=== PATIENT | male | born 1945 | race Caucasian/White ===

== ENCOUNTER 2018-05-16 05:25 | Emergency (ER) | payer OTHER, BC ==
--- NOTE | 2018-05-16 05:32 | PDOC ---
History of Present Illness - General Stated Complaint: FALL,RT KNEE PAIN Time Seen by Provider: 05/16/18 05:32 - History of Present Illness Initial Comments: 72 year old male with history of HLD, HTN, and GERD presenting with right knee pain and swelling after falling and striking his knee at 14:00 on the day prior to presentation. Patient states that the was walking down the stairs with a bunch of groceries in his hand and tripped over the last stair at which point he fell forward and directly down onto his right knee. Denies any other sites of major trauma. States hta the bumped his right elbow but without any concerning sequelae. Denies any sudden excruciating pain but gradually began to note swelling and stiffness of his knee with difficulty fully extending his knee. Denies any erythema, drainage, fevers, chills. nausea vomiting, chest pain , SOB, or other symptoms 05/16/18 05:47 Past History - Past Medical History Allergies/Adverse Reactions: Allergies Allergy/AdvReac Type Severity Reaction Status Date / Time No Known Allergies Allergy Verified 05/16/18 05:39 Home Medications: Ambulatory Orders Amlodipine Besylate 10 mg PO DAILY 05/16/18 Aspirin [ASA -] 81 mg PO DAILY 05/16/18 Atorvastatin Calcium 40 mg PO DAILY 05/16/18 Losartan Potassium 100 mg PO DAILY 05/16/18 Pantoprazole Sodium 40 mg PO DAILY 05/16/18 Rosuvastatin [Crestor -] 20 mg PO DAILY 05/16/18 Zinc 50 mg PO DAILY 05/16/18 Review of Systems - Review of Systems Constitutional: No: Chills, Diaphoresis, Fever, Loss of Appetite HEENTM: No: Eye Pain, Blurred Vision, Tearing Respiratory: No: Cough, Orthopnea, Shortness of Breath Cardiac (ROS): No: Chest Pain, Edema, Irregular Heart Rate, Lightheadedness ABD/GI: No: Abdominal Distended, Diarrhea, Nausea, Vomiting : No: Dysuria, Discharge, Testicular Mass Musculoskeletal: Yes: Joint Pain, Joint Swelling, Muscle Weakness, Joint Stiffness. No: Back Pain Integumentary: No: Change in Color, Lumps, Pruritus Neurological: No: Headache, Numbness, Paresthesia Psychiatric: No: Anxiety, Depression Hematologic/Lymphatic: No: Anemia, Blood Clots, Easy Bleeding *Physical Exam - Physical Exam General Appearance: Yes: Nourished, Appropriately Dressed. No: Apparent Distress HEENT: positive: EOMI, LATHA, Normal ENT Inspection, Normal Voice Neck: positive: Trachea midline, Normal Thyroid, Supple. negative: Tender, Rigid Respiratory/Chest: positive: Lungs Clear, Normal Breath Sounds. negative: Chest Tender, Respiratory Distress, Accessory Muscle Use Cardiovascular: positive: Regular Rhythm, Regular Rate Gastrointestinal/Abdominal: positive: Normal Bowel Sounds, Flat, Soft. negative : Tender Lymphatic: negative: Adenopathy, Tenderness Musculoskeletal: positive: Decreased Range of Motion (Right knee with fluid effusion above patella, below petalla, and in the politeal fossa. Tender to palpation over hte medial aspect of the knee joint. Decreaed ability to extend leg. FUll passive range of motion with negative laurita's and garrett's.). negative: Normal Inspection Extremity: positive: Normal Capillary Refill, Normal Inspection, Normal Range of Motion. negative: Tender Integumentary: positive: Normal Color, Dry, Warm Neurologic: positive: Fully Oriented, Alert, Normal Mood/Affect, Normal Response , Motor Strength 5/5 Medical Decision Making - Medical Decision Making 72 year old with right knee effusion and pain after direct trauma to hte knee. Knee XR negative for fracture or other concenrign pathology. Knee exam negative laurita's, negative garrett's, and no obvious deformity with valgus/ varus strain. Will DC with followu up with ortho. 05/16/18 05:54 *DC/Admit/Observation/Transfer Diagnosis at time of Disposition: Effusion, right knee Right knee pain Qualifiers: Chronicity: acute Qualified Code(s): M25.561 - Pain in right knee - Discharge Dispostion Disposition: HOME Condition at time of disposition: Improved Decision to Admit order: No - Referrals Referrals: Jeromy Jara MD [Primary Care Provider] - Edson Carrington MD [Staff Physician] - - Patient Instructions Printed Discharge Instructions: DI for Knee Effusion, How To Perform RICE (Rest , Ice, Compress, Elevate) Additional Instructions: You have no fracture of your knee. Please try to only partially weight bear with your foot. Use RICE therapy per our instructions, Use Tylenol and Motrin for your pain. Please follow up with the orthopedic surgeon on Saturday. Please return to the ED if you have new or worsening symptoms. - Post Discharge Activity
[2018-05-16] MEDS ORDERED: ACETAMINOPHEN 500 MG TABLET (FP) PO ONE (05:46)
[2018-05-16 05:47] VITALS: BP 158/79; PULSE 88; TEMP 97.9; BMI 32.8
[2018-05-16] MEDS ORDERED: ACETAMINOPHEN 325 MG TABLET (FP) ONE (05:52)
--- NOTE | 2018-05-16 06:43 | PDOC ---
History of Present Illness - General Chief Complaint: Pain Stated Complaint: FALL,RT KNEE PAIN Time Seen by Provider: 05/16/18 05:32 History Source: Patient, Significant Other Exam Limitations: No Limitations - History of Present Illness Initial Comments: 05/16/18 06:35 72yoM hx of HTN, HL, GERD presnest > 12h after fall onto R knee. Last step going down stairs and slipped w/ trauma to anterior knee. + head hit on bannister, no LOC, no headache, no vision changes. pmhx as above shx no cig/etoh/illicitws NKDA AF, vSS NAD, appears younger than stated age. NCAT nontender cspine, no stepoffs. RRR CTABL abd soft ntnd pelvis stable R knee moderate effusion, + ballotting patella, unable to extend knee, + significant superior mobility of patella on quadraceps contraction. A&O x 3 72yoM w/ knee effusion after strike, concern for patellar tendon rupture. . knee xrays knee immobilizer, NWB and rapid orthopedics f/u. dispo Past History - Past Medical History Allergies/Adverse Reactions: Allergies Allergy/AdvReac Type Severity Reaction Status Date / Time No Known Allergies Allergy Verified 05/16/18 05:39 Home Medications: Ambulatory Orders Amlodipine Besylate 10 mg PO DAILY 05/16/18 Aspirin [ASA -] 81 mg PO DAILY 05/16/18 Atorvastatin Calcium 40 mg PO DAILY 05/16/18 Losartan Potassium 100 mg PO DAILY 05/16/18 Pantoprazole Sodium 40 mg PO DAILY 05/16/18 Rosuvastatin [Crestor -] 20 mg PO DAILY 05/16/18 Zinc 50 mg PO DAILY 05/16/18 Cancer: Yes (Prostate) COPD: No HTN: Yes Hypercholesterolemia: Yes Other medical history: Sleep Apnea - Surgical History Abdominal Surgery: Yes (Prostate CA) - Suicide/Smoking/Psychosocial Hx Smoking History: Former smoker Have you smoked in the past 12 months: No If you are a former smoker, when did you quit?: 40 yrs ago Information on smoking cessation initiated: No Hx Alcohol Use: No Drug/Substance Use Hx: No Substance Use Type: None *Physical Exam - Vital Signs Last Vital Signs Temp Pulse Resp BP Pulse Ox 97.9 F 88 20 158/79 97 05/16/18 05:41 05/16/18 05:41 05/16/18 05:41 05/16/18 05:41 05/16/18 05:41 ED Treatment Course - Medications Given in the ED: ED Medications Discontinued Medications Generic Name Dose Route Start Last Admin Trade Name Apolinar PRN Reason Stop Dose Admin Acetaminophen 975 mg 05/16/18 05:46 05/16/18 05:51 Tylenol - PO 05/16/18 05:47 975 mg ONCE ONE Administration *DC/Admit/Observation/Transfer Diagnosis at time of Disposition: Effusion, right knee Right knee pain Qualifiers: Chronicity: acute Qualified Code(s): M25.561 - Pain in right knee - Discharge Dispostion Disposition: HOME Condition at time of disposition: Improved - Referrals Referrals: Jeromy Jara MD [Primary Care Provider] - Edson Carrington MD [Staff Physician] - - Patient Instructions Printed Discharge Instructions: How To Perform RICE (Rest, Ice, Compress, Elevate), DI for Knee Effusion Additional Instructions: You have no fracture of your knee. Please try to only partially weight bear with your foot. Use RICE therapy per our instructions, Use Tylenol and Motrin for your pain. Please follow up with the orthopedic surgeon on Saturday. Please return to the ED if you have new or worsening symptoms. - Post Discharge Activity
== END 2018-05-16 07:50 | disposition home or self-care (01) ==
LOC: JER 05:25
DX: M25.561 Pain in right knee (principal); M79.89 Other specified soft tissue disorders; Z87.891 Personal history of nicotine dependence; Z85.46 Personal history of malignant neoplasm of prostate; I10 Essential (primary) hypertension; E78.00 Pure hypercholesterolemia, unspecified; W10.9XXA Fall (on) (from) unspecified stairs and steps, initial encounter; Y93.89 Activity, other specified; Y92.89 Other specified places as the place of occurrence of the external cause
CPT/HCPCS: 73564-TC-RT-FY; 99283-25

== ENCOUNTER 2018-05-23 06:21 | Day surgery (SDC) | payer OTHER, BC ==
[2018-05-20 13:43] VITALS: BMI 32.8
[2018-05-23 07:51] LABS: ALBUMIN 3.6 g/dl (3.4-5.0); ALK PHOS 76 U/L (45-117); ANION GAP 7 MMOL/L (8-16); BILIRUBIN,TOTAL 0.6 mg/dL (0.2-1); BLOOD UREA NITROGEN 24 mg/dL (7-18); CALCIUM 9.6 mg/dL (8.5-10.1); CHLORIDE 105 mmol/L (98-107); CO2 28 mmol/L (21-32); CREATININE 1.2 mg/dL (0.55-1.3); GLUCOSE,RANDOM 98 mg/dL (74-106); POTASSIUM 4.2 mmol/L (3.5-5.1); SGOT/AST 26 U/L (15-37); SGPT/ALT 33 U/L (13-61); SODIUM 140 mmol/L (136-145)
[2018-05-23] MEDS ORDERED: PROPOFOL 20 ML ONE (07:57)
[2018-05-23] MEDS ORDERED: SUCCINYLCHOLINE CHLORIDE 200 MG/10 ML VIAL ONE (07:57)
[2018-05-23] MEDS ORDERED: MIDAZOLAM HCL 2 MG/2 ML SINGLE DOSE VIAL ONE ×2 (07:57→08:37)
[2018-05-23] MEDS ORDERED: oxyCODONE HCL 5 MG TABLET PO PRN (08:10)
[2018-05-23] MEDS ORDERED: ONDANSETRON 4 MG/2 ML VIAL IVPUSH PRN (08:10)
--- NOTE | 2018-05-23 08:12 | HP ---
Satellite [facility] - Chief Complaint Chief Complaint: right knee pain History Source: Patient - Past Medical History Allergies/Adverse Reactions: Allergies Allergy/AdvReac Type Severity Reaction Status Date / Time No Known Allergies Allergy Verified 05/20/18 13:30 - Current Medications Current Medications: Home Medications Medication Instructions Recorded Amlodipine Besylate 10 mg PO DAILY 05/16/18 Aspirin [ASA -] 81 mg PO DAILY 05/16/18 Atorvastatin Calcium 40 mg PO DAILY 05/16/18 Losartan Potassium 100 mg PO DAILY 05/16/18 Pantoprazole Sodium 40 mg PO DAILY 05/16/18 Rosuvastatin [Crestor -] 20 mg PO DAILY 05/16/18 Zinc 50 mg PO DAILY 05/16/18 Satellite Physical Exam - Physical Examination Vital Signs: Vital Signs Period Temp Pulse Resp BP Sys/Mendez Pulse Ox Last 24 Hr 98.5 F 74 18 127/68 95 Extremities: Other (+ defect in quads superior to right patella, unable to extend knee with gravity removed) Satellite Impression/Plan - Impression/Plan Impression: right quads rupture Operative Procedure: right quads repair Date to be Performed: 05/23/18
[2018-05-23] MEDS ORDERED: LACTATED RINGERS SOLUTION 1,000 ML IV SCH (08:15)
[2018-05-23] MEDS ORDERED: ceFAZolin SODIUM 1 GM VIAL IVPB ONE (08:33)
--- NOTE | 2018-05-23 09:27 | OP ---
Operative Note - Note: Operative Date: 05/23/18 ([facility]) Pre-Operative Diagnosis: right quad tendon rupture Operation: right quad tendon repair Post-Operative Diagnosis: Same as Pre-op Surgeon: Edson Carrington Audit Senior Associate: Amilcar Delgado Anesthesiologist/FILING OR REGISTRY CLERK: Randi Hairston Anesthesia: Spinal, Local Estimated Blood Loss (mls): 50 Operative Report Dictated: Yes
--- NOTE | 2018-05-23 09:54 | OP ---
DATE OF OPERATION: 05/23/2018 PREOPERATIVE DIAGNOSIS: Right quadriceps tendon rupture. POSTOPERATIVE DIAGNOSIS: Right quadriceps tendon rupture. PROCEDURE: Right quadriceps tendon repair. SURGICAL ATTENDING: Edson Carrington MD SHOT COAT TENDER: YAKOV Bernard ANESTHESIA: Regional and general. CLOSURE: SutureTape from [employer] for tendon, No. 1 Vicryl for retinaculum, 0 and 2-0 subcutaneous, and 3-0 Monocryl subcuticular, with skin glue for skin. ESTIMATED BLOOD LOSS: Less than 50 mL. COMPLICATIONS: None. CONDITION: To recovery room in stable condition. DESCRIPTION OF OPERATIVE PROCEDURE: Patient was taken to the operating room on May 23, 2018. General anesthesia was administered by the anesthesiologist. IV Kefzol was administered prophylactically prior to the case. The right lower extremity was prepped and draped in the usual sterile fashion. A 8 x 10 cm longitudinal incision centered over the patella was incised. Hemostasis was achieved with Bovie cautery. Sharp dissection was carried down to the level of the extensor mechanism. The quadriceps tendon was found to be completely torn and retinaculum torn both medially and laterally. The knee was irrigated with copious amounts of irrigation. The tendon was sutured with SutureTape suture using a baseball stitch up and down the sides and in the center aspect of the tendon. The superior pole of the patella was freshened to expose bleeding bone curetted, as well. Two transpatellar drill holes were drilled from superior to inferior. Using a Beath pin, the sutures in the quadriceps tendon were placed through the eyelet hole of the Beath pin and pulled out the inferior pole of the patella. One limb was passed underneath the patellar tendon medially, and the other was passed in the lateral direction. With the knee in extension, the sutures were then tied snugly to the inferior pole of the patella, one medially and one laterally, achieving excellent fixation of the tendon. The retinaculum was then closed medially and laterally using N. 1 Vicryl suture. The knee was tested through range of motion and found to have full extension and started to experience some tension 45 to 60 degrees with good maintenance of the repair. The incision was copiously irrigated. The subcutaneous was closed with 2-0 Vicryl and 3-0 Monocryl subcuticular, with skin glue for skin with sterile Aquacel dressing followed by Castro dressing and a knee immobilizer. Patient was awakened from anesthesia and transferred to recovery room in stable condition. No complications. Estimated blood loss negligible. Vicki FLORENTINO/[id number]
[2018-05-23] MEDS ORDERED: CEFAZOLIN 1 GM in DEXTROSE 5%-WATER - 50 ML IVPB ONE (10:00)
[2018-05-23] MEDS ORDERED: oxyCODONE HCL 5 MG TABLET ONE ×2 (11:26→12:33)
[2018-05-23] MEDS ORDERED: oxyCODONE HCL 5 MG TABLET PO ONE ×3 (11:28→12:41)
[2018-05-23 11:35] VITALS: TEMP 97.4
[2018-05-23 13:42] VITALS: BP 140/84; PULSE 74
== END 2018-05-23 15:10 | disposition home or self-care (01) ==
LOC: JASU-SURG 06:21
PROVIDERS: ATTEND Orthopaedic Surgery
PROC: 0LQL0ZZ Repair Right Upper Leg Tendon, Open Approach (ICD-10-PCS; principal; 2018-05-23 08:38)
DX: S76.111A Strain of right quadriceps muscle, fascia and tendon, initial encounter (principal); X58.XXXA Exposure to other specified factors, initial encounter; Y93.9 Activity, unspecified; Y92.9 Unspecified place or not applicable; Y99.9 Unspecified external cause status; I10 Essential (primary) hypertension; E66.9 Obesity, unspecified
CPT/HCPCS: 36415; 80053; 94760

== ENCOUNTER 2022-03-27 07:51 | Day surgery (SDC) | payer OTHER, BC ==
[2022-03-21 17:19] VITALS: BMI 33.6
[2022-03-27] MEDS ORDERED: TRANEXAMIC ACID 1000 MG/10 ML VIAL IVPUSH ONE (08:38)
[2022-03-27] MEDS ORDERED: CELECOXIB 200 MG CAPSULE PO ONE (08:38)
[2022-03-27] MEDS ORDERED: CEFAZOLIN 2 GM in DEXTROSE 5%-WATER - 50 ML IVPB ONE (08:38)
[2022-03-27] MEDS ORDERED: BUPIVICAINE 0.25%/MORPH PF/KETOROLAC - 51ML DISP.SYRINGE IA ONE ×2 (08:38→10:54)
[2022-03-27] MEDS ORDERED: CELECOXIB 200 MG CAPSULE ONE (08:41)
[2022-03-27] MEDS ORDERED: BUPIVACAINE HCL/PF 0.5% (5 MG/ML) 30 ML VIAL IJ ONE (09:34)
[2022-03-27] MEDS ORDERED: MIDAZOLAM HCL 2 MG/2 ML SINGLE DOSE VIAL ONE ×3 (09:34→11:20)
[2022-03-27] MEDS ORDERED: ceFAZolin SODIUM 1 GM VIAL ONE ×2 (09:34→11:39)
[2022-03-27] MEDS ORDERED: THROMBIN (BOVINE) 5,000 UNIT VIAL TP ONE (09:34)
[2022-03-27] MEDS ORDERED: DEXAMETHASONE SOD PHOSPHATE 10 MG/1 ML VIAL ONE (09:35)
[2022-03-27] MEDS ORDERED: BUPIVACAINE HCL 50 ML ONE (10:07)
[2022-03-27] MEDS ORDERED: ONDANSETRON 4 MG/2 ML VIAL IVPUSH PRN (11:37)
[2022-03-27] MEDS ORDERED: KETOROLAC TROMETHAMINE 30 MG/1 ML VIAL ONE (11:39)
[2022-03-27] MEDS ORDERED: TRANEXAMIC ACID 1000 MG/10 ML VIAL ONE (11:39)
[2022-03-27] MEDS ORDERED: DEXAMETHASONE SOD PHOSPHATE 4 MG/1 ML VIAL ONE (11:39)
[2022-03-27] MEDS ORDERED: LACTATED RINGERS SOLUTION 1,000 ML IV SCH ×2 (11:45→12:00)
[2022-03-27] MEDS ORDERED: oxyCODONE HCL 5 MG TABLET PO PRN ×2 (11:52)
[2022-03-27] MEDS ORDERED: ACETAMINOPHEN 1000 MG/100 ML BAG IVPB ONE (11:52)
[2022-03-27] MEDS ORDERED: KETOROLAC TROMETHAMINE 30 MG/1 ML VIAL IVPUSH SCH (12:00)
[2022-03-27] MEDS ORDERED: ACETAMINOPHEN INJECTION 100 ML IVPB ONE (12:56)
[2022-03-27] MEDS: CEFAZOLIN 2 GM in DEXTROSE 5%-WATER - 50 ML IVPB SCH (18:19)
[2022-03-27] MEDS: ACETAMINOPHEN 500 MG TABLET (FP) PO SCH (18:19)
[2022-03-27] MEDS: oxyCODONE HCL 10 MG SUSTAINED ACTING TABLET PO SCH (21:36)
[2022-03-27] MEDS: SENNOSIDES/DOCUSATE COMBO (SENNA PLUS) TABLET (UD) PO SCH (21:36)
[2022-03-27] MEDS ORDERED: ROSUVASTATIN CA 20 MG TABLET PO SCH (22:00)
[2022-03-28] MEDS: ACETAMINOPHEN 500 MG TABLET (FP) PO SCH ×2 (00:22→06:38)
[2022-03-28] MEDS: CEFAZOLIN 2 GM in DEXTROSE 5%-WATER - 50 ML IVPB SCH (02:37)
[2022-03-28] MEDS ORDERED: ASPIRIN 325 MG TABLET PO SCH (08:00)
[2022-03-28 09:04] VITALS: BP 129/57; PULSE 86; RESP 19; TEMP 98.2
[2022-03-28] MEDS: SENNOSIDES/DOCUSATE COMBO (SENNA PLUS) TABLET (UD) PO SCH (09:17)
[2022-03-28] MEDS: oxyCODONE HCL 10 MG SUSTAINED ACTING TABLET PO SCH (09:18)
[2022-03-28] MEDS ORDERED: MULTIVITAMINS (DAILY MVI) TABLET (FP) PO SCH (10:00)
[2022-03-28] MEDS ORDERED: amLODIPine BESYLATE 10 MG TABLET (FP) PO SCH (10:00)
[2022-03-28] MEDS ORDERED: LOSARTAN POTASSIUM 50 MG TABLET PO SCH (10:00)
[2022-03-28] MEDS ORDERED: PANTOPRAZOLE 20 MG TABLET PO SCH (10:00)
[2022-03-28] MEDS ORDERED: HYDROCHLOROTHIAZIDE 25 MG TABLET (FP) PO SCH (10:00)
== END 2022-03-28 12:37 | disposition home health service (06) ==
LOC: FASUSAT 07:51 → EDSTATUS 08:00 → FM/S 13:05 → FASUSAT 03-28 12:37
PROVIDERS: ATTEND Orthopaedic Surgery
PROC: 8E0YXBZ Computer Assisted Procedure of Lower Extremity (ICD-10-PCS; 2022-03-27)
PROC: 8E0Y0CZ Robotic Assisted Procedure of Lower Extremity, Open Approach (ICD-10-PCS; 2022-03-27)
PROC: 0SRD0L9 Replacement of Left Knee Joint with Medial Unicondylar Synthetic Substitute, Cemented, Open Approach (ICD-10-PCS; principal; 2022-03-27 10:24)
DX: M17.12 Unilateral primary osteoarthritis, left knee (principal)
CPT/HCPCS: 20985; 27446; C1776; S2900; 73560-TC-LT-FY; 94660; 94760; 97010-GP; 97116-GP; 97162-GP; J1100